=== PATIENT | female | born 1980 | race Caucasian/White ===

== ENCOUNTER 2017-07-11 06:23 | Day surgery (SDC) | payer BC ==
[~2017-07-11 06:23] MED LIST: Lactated Ringers 1,000 ML IV SCH; ceFAZolin 1 GM in Premix Bag 1 BAG IV SCH
[2017-07-11] MEDS ORDERED: Ketorolac 30 MG/ML SDV ONE (07:21)
[2017-07-11] MEDS ORDERED: Propofol 200 MG/20 ML SDV ONE (07:21)
[2017-07-11] MEDS ORDERED: diphenhydrAMINE 50 MG/ML SDV ONE (07:21)
[2017-07-11] MEDS ORDERED: fentaNYL 100 MCG/2 ML SDV ONE (07:21)
[2017-07-11] MEDS ORDERED: Midazolam 1 MG/ML 2 ML SDV ONE (07:21)
[2017-07-11] MEDS ORDERED: Ondansetron 4 MG/2 ML SDV ONE (07:21)
[2017-07-11] MEDS ORDERED: Lidocaine 2% 5 ML SDV ONE (07:22)
--- NOTE | 2017-07-11 07:23 | PCM.PREANE ---
Preanesthetic Assessment - Procedure Proposed Procedure: Right knee arthroscopy vs ORIF femoral condyle - Anesthesia/Transfusion/Family Hx Anesthesia History: No Prior Anesthesia Family History of Anesthesia Reaction: No Transfusion History: No Prior Transfusion(s) Intubation History: Unknown - Review of Systems General: No Symptoms Pulmonary: No Symptoms Cardiovascular: No Symptoms Gastrointestinal: No Symptoms Neurological: No Symptoms Other: Reports: None - Physical Assessment NPO Status Date: 07/10/17 NPO Status Time: 23:00 O2 Sat by Pulse Oximetry: 100 Respiratory Rate: 16 Vital Signs: Last Vital Signs Temp 98.1 F 07/11/17 06:50 Pulse 69 07/11/17 06:50 Resp 16 07/11/17 06:50 BP 118/70 07/11/17 06:50 Pulse Ox 100 07/11/17 06:50 Height: 5 ft 4 in Weight: 130 lb ASA Class: 1 Mental Status: Alert & Oriented x3 Airway Class: Mallampati = 1 Dentition: Reports: Normal Dentition Thyro-Mental Finger Breadths: 3 Mouth Opening Finger Breadths: 3 ROM/Head Extension: Full Lungs: Clear to Auscultation, Normal Respiratory Effort Cardiovascular: Regular Rate, Regular Rhythm, No Murmurs - Allergies Allergies/Adverse Reactions: Allergies Allergy/AdvReac Type Severity Reaction Status Date / Time No Known Allergies Allergy Verified 07/04/15 13:37 - Blood Blood Available: No Product(s) Available: None - Anesthesia Plan Pre-Op Medication Ordered: None - Acknowledgements Anesthesia Type Planned: General Anesthesia (LMA) Pt an Appropriate Candidate for the Planned Anesthesia: Yes Alternatives and Risks of Anesthesia Discussed w Pt/Guardian: Yes Pt/Guardian Understands and Agrees with Anesthesia Plan: Yes PreAnesthesia Questionnaire - Past Health History Medical/Surgical History: Denies Medical/Surgical History - Past Surgical History Head Surgeries/Procedures: Reports: None - SUBSTANCE USE Smoking Status *Q: Never Smoker Recreational Drug Use History: No - HOME MEDS Home Medications: Home Meds . [No Known Home Meds] 07/09/17 [History] - CURRENT (IN HOUSE) MEDS Current Meds: Current Medications Hydrocodone Bitart/Acetaminophen ([place] 325-5 Mg) 1 - 2 tab PO Q4H PRN PRN Reason: Pain Cefazolin Sodium/Dextrose 1 gm (/ Premix) 50 mls @ 100 mls/hr IV ONCALL HOPE Lactated Ringer's (Ringers, Lactated) 1,000 mls @ 100 mls/hr IV ASDIRECTED [facility] Last Admin: 07/11/17 06:51 Dose: 100 mls/hr
[2017-07-11] MEDS ORDERED: ceFAZolin 1 GM Vial ONE (07:31)
[2017-07-11] MEDS ORDERED: fentaNYL 100 MCG/2 ML SDV IVPUSH PRN (07:37)
[2017-07-11] MEDS ORDERED: Lidocaine 1% 20 ML MDV ONE (07:42)
[2017-07-11] MEDS ORDERED: Acetaminophen/HYDROcodone 325-5 MG Tab PO PRN (08:00)
--- NOTE | 2017-07-11 09:28 | PCM.OPNOTE ---
- General Post-Op/Procedure Note Date of Surgery/Procedure: 07/11/17 Operative Procedure(s): R knee arthroscopy with chondroplasty of medial femoral condyle and excision of loose bodies x 3 Post-Op Diagnosis: OCD R knee MFC, loose body R knee Anesthesia Technique: General LMA Primary Surgeon: Mavis Boyd EBL in mLs: 5 Condition: Good Free Text/Narrative:: tt=34 min #[id number]
--- NOTE | 2017-07-11 09:38 | PCM.POSTAN ---
POST ANESTHESIA ASSESSMENT - MENTAL STATUS Mental Status: Alert - VITAL SIGNS Pulse Rate: 64 SaO2: 100 Resp Rate: 14 Blood Pressure: 127/67 - RESPIRATORY Respiratory Status: Respiratory Rate WNL - CARDIOVASCULAR CV Status: Pulse Rate WNL - GASTROINTESTINAL GI Status: No Symptoms - POST OP HYDRATION Hydration Status: Adequate & Stable
--- NOTE | 2017-07-11 09:56 | OR ---
SURGEON: Mavis Boyd MD DATE OF PROCEDURE: 07/11/2017 PREOPERATIVE DIAGNOSES: 1. Osteochondral defect, right medial femoral condyle. 2. Loose body, right knee. POSTOPERATIVE DIAGNOSES: 1. Osteochondral defect, right medial femoral condyle. 2. Loose body, right knee. PROCEDURE: Right knee arthroscopy with: 1. Chondroplasty of the medial femoral condyle. 2. Excision of multiple loose bodies (8 mm x 5 mm, 5 mm x 6 mm, and 10 mm x 10 mm). ANESTHESIA: General. ESTIMATED BLOOD LOSS: 5 mL. TOURNIQUET TIME: 34 minutes. COMPLICATIONS: None. DVT PROPHYLAXIS: Not indicated. IMPLANTS USED: None. BRIEF HISTORY: Rocio is a 36-year-old female, who injured her right knee a few weeks ago, when she john to a standing position from a squat. She felt a short pain in her knee. Since that time, she has had a complaint of a locking sensation along with instability. She did have an MRI scan done, which did show a large osteochondral defect along the lateral aspect of the medial femoral condyle. There was also evidence of a loose body. At that time, I recommended surgical intervention. The risks and goals of procedure were discussed with the patient and were documented preoperatively. She agreed to proceed. DESCRIPTION OF PROCEDURE: The patient was properly identified and brought to the operating room. She was transferred from the OR cart and placed on the operating room table in the supine position. General anesthesia was administered. After adequate anesthesia was obtained, a well-padded tourniquet was applied to the right lower extremity. The right lower extremity was then prepped in standard fashion using ChloraPrep solution. It was then sterilely draped. A time-out was performed to ensure correct site and procedure. Preoperative antibiotics were given. The surgical site had been marked preoperatively. An Esmarch was used to exsanguinate the right lower extremity and the tourniquet was inflated to 250 mmHg. A lateral portal arthrotomy was established. Blunt trocar and cannula were introduced into the suprapatellar pouch. Camera, inflow, and outflow were assembled. No significant synovitis was noted in the suprapatellar pouch. The patellofemoral joint was visualized. The joint surfaces appeared pristine. The patella tracked centrally. I then extended down the lateral and medial gutter. No loose bodies were identified. I then entered the medial compartment. A medial portal arthrotomy was established. A probe was inserted. She was found to have significant fragmentation of the cartilage along the lateral aspect of the medial femoral condyle. These were probed and found to be loose. They were removed without difficulty. The edges were smoothed. The remainder of the edges appeared to be well fixed. A curette was used to gently debride the remainder of the loose cartilage from the edges. The defect was quite large. It measured approximately 20 mm in width by 15 mm in length. Depth was approximately 4 to 5 mm. This was directly over the weightbearing portion of the medial femoral condyle. The meniscus was then inspected. The meniscus was probed and found to be stable. The tibial plateau showed a small fissure corresponding to the area of the defect, however, no full-thickness cartilage loss was noted. I then entered the notch. Both the ACL and PCL were visualized and probed and found to be intact. I then entered the lateral compartment. The lateral femoral condyle showed no sign of degenerative changes. The lateral tibial plateau had 3 fissures which were probed. These were not found to be loose and there appeared to be full thickness cartilage overlying them. The meniscus was also probed and found to be stable. I then looked for any further loose bodies. I examined the suprapatellar, medial, and lateral compartments again. I also entered the posterior medial and posterior lateral aspect of the knee. Mild synovitis was noted posteriorly, however, no loose bodies were identified. Instruments were then removed from the knee. The portal sites were closed with 3-0 nylon. Lidocaine 1% was injected along the portal tracts. Xeroform gauze was placed over the wound and a bulky dressing was applied. Tourniquet was then deflated. She was awakened from her anesthetic and transferred back to the operating room cart. She was brought to recovery room in stable condition. All needle and sponge counts were correct. RICARDA / TERESO /[id number]
--- NOTE | 2017-07-11 10:16 | PCM48HPAN ---
Post Anesthesia Note - EVALUATION WITHIN 48HRS OF ANESTHETIC Vital Signs in Normal Range: Yes Patient Participated in Evaluation: Yes Respiratory Function Stable: Yes Airway Patent: Yes Cardiovascular Function Stable: Yes Hydration Status Stable: Yes Pain Control Satisfactory: Yes Nausea and Vomiting Control Satisfactory: Yes Mental Status Recovered: Yes - COMMENTS/OBSERVATIONS Free Text/Narrative:: Doing well with pain while at rest. Will be off her feet per surgeon when home.
[2017-07-11 10:43] VITALS: BP 110/72
== END 2017-07-11 10:39 | disposition home or self-care (01) ==
LOC: MW.SDS 06:23
PROVIDERS: ATTEND Orthopaedic Surgery
PROC: 0SBC4ZZ Excision of Right Knee Joint, Percutaneous Endoscopic Approach (ICD-10-PCS; principal; 2017-07-11)
DX: M21.961 Unspecified acquired deformity of right lower leg (principal)
CPT/HCPCS: 29877; 81025; J0690; J1200; J1885; J2250; J2405; J3010; J7120; 01400; 88304; J2704